=== PATIENT | female | born 1995 | race Caucasian/White ===

== ENCOUNTER 2016-03-14 11:04 | Outpatient (CLI) | payer SELFPAY ==
[~2016-03-14] VITALS: Ht 165.1 cm; Wt 111.7 kg
[2016-03-14 11:09] VITALS: BP 141/82
--- OUTSIDE RECORDS SUMMARY | 2016-03-14 11:10 | XMS REPORT ---
Author TARAH Broussard [facility] eClinicalWorks Address Unknown Phone Unavailable Care Team Providers Care Genetic Counselor Name Role Phone TARAH MENDOZA Unavailable Allergies No Known Allergies Problems Problem Type Condition Code Onset Dates Condition Status Problem Morbid obesity due to excess calories E66.01 Active Problem PCOS (polycystic ovarian syndrome) E28.2 Active Problem Dysuria R30.0 Active Assessment PCOS (polycystic ovarian syndrome) E28.2 Active Assessment Morbid obesity due to excess calories E66.01 Active Medications No Known Medications Procedures Procedure Coding System Code Date ASSAY OF INSULIN CPT-4 63662 September 08, 2015 COMPLETE CBC W/AUTO DIFF WBC CPT-4 82807 September 08, 2015 ASSAY THYROID STIM HORMONE CPT-4 42396 September 08, 2015 COMPREHEN METABOLIC PANEL CPT-4 89999 September 08, 2015 LIPID PANEL CPT-4 01536 September 08, 2015 VENIPUNCT, ROUTINE* CPT-4 88769 September 08, 2015 Results No Known Results Summary Purpose eClinicalWorks Submission
[2016-03-14] MEDS ORDERED: METF500T4 PO (11:16)
[2016-03-14 11:39] LABS: BASOPHILS # (AUTO) 0.1 10^3/uL (0.0-0.1); BASOPHILS % (AUTO) 1 % (0-10); EOSINOPHILS # (AUTO) 0.2 10^3/uL (0.0-0.3); EOSINOPHILS % (AUTO) 3 % (0-10); LYMPHOCYTES # (AUTO) 3.3 X 10^3 (1.0-4.0); LYMPHOCYTES % (AUTO) 35 % (12-44); MEAN CORPUSCULAR HEMOGLOBIN 29 PG (25-34); MEAN CORPUSCULAR HGB CONC 33 G/DL (32-36); MEAN CORPUSCULAR VOLUME 88 FL (80-99); MEAN PLATELET VOLUME 10.1 FL (7.4-10.4); MONOCYTES # (AUTO) 0.8 X 10^3 (0.0-1.0); MONOCYTES % (AUTO) 8 % (0-12); NEUTROPHILS % (AUTO) 53 % (42-75); PLATELET COUNT 260 10^3/uL (130-400); RED BLOOD COUNT 4.67 10^6/uL (4.35-5.85); RED CELL DISTRIBUTION WIDTH 13.5 % (10.0-14.5); WHITE BLOOD COUNT 9.4 10^3/uL (4.3-11.0)
[2016-03-15] MEDS ORDERED: IBUP-1773 PO (23:57)
[2016-03-15] MEDS ORDERED: HYDR-3812 PO (23:57)
== END 2016-03-14 11:35 | disposition home or self-care (01) ==
LOC: PREOP 11:04
PROVIDERS: ATTEND Obstetrics & Gynecology
DX: Z01.812 Encounter for preprocedural laboratory examination (principal); Z11.2 Encounter for screening for other bacterial diseases; N83.201 Unspecified ovarian cyst, right side
CPT/HCPCS: 36415; 84703; 85025; 87081

== ENCOUNTER 2016-03-15 07:42 | Day surgery (SDC) | payer SELFPAY ==
[~2016-03-15] VITALS: Ht 165.1 cm; Wt 111.7 kg
[2016-03-15 07:40] VITALS: BP 124/82
[~2016-03-15 07:42] MED LIST: METF500T4 PO
--- NOTE | 2016-03-15 07:59 | History & Physical-Surgical ---
HPO-Surgical History of Present Illness Chief Complaint: right ovarian dermoid/teratoma Diagnosis/Surgical Indication: right ovarian dermoid/teratoma Procedure: laparoscopic right ovarian cystectomy Date of Surgery: Mar 15, 2016 Weight (Pounds): 246 Weight (Ounces): 3.0 Height (Feet): 5 Height (Inches): 5.00 Allergies and Home Medications Allergies Coded Allergies: Iodinated Contrast Media - Oral and (Verified Allergy, Unknown, 03/14/16) Home Medications Metformin HCl 500 Mg Tablet 500 MG PO BID (Reported) Past Esxcwui-Lerixy-Dmqsjr Hx Patient Social History Marrital Status: single Number of Children: 0 Number of living children: 0 Employed/Student: employed Alcohol Use: Denies Use Recreational Drug Use: No Smoking Status: Never a Smoker Recent Hopitalizations: No Immunizations Up To Date Tetanus Booster (TDap): Unknown Seasonal Allergies Seasonal Allergies: No Surgeries HX Surgeries: Yes Surgeries: Gallbladder, Tonsillectomy Respiratory Hx Respiratory Disorders: Yes Cardiovascular Hx Cardiovascular Disorders: No Reproductive System : No Hx Reproductive Disorders: Yes (right dermoid cyst) Female Reproductive Disorders: Polycystic Ovarian Dis Genitourinary Hx Genitourinary Disorders: No Gastrointestinal Hx Gastrointestinal Disorders: Yes Gastrointestinal Disorders: Chronic Constipation Musculoskeletal Hx Musculoskeletal Disorders: Yes ("slipped disc in lower back) Musculoskeletal Disorders: Arthritis Endocrine Hx Endocrine Disorders: No (on metformin for weight loss) HEENT HX ENT Disorders: No (glasses) Cancer Hx Cancer: No Psychosocial Hx Psychiatric Problems: No Integumentary HX Skin/Integumentary Disorder: No Blood Transfusions Hx Blood Disorders: No Family Medical History Significant Family History: Other Conditions/Hx Exam Vital Signs Capillary Refill : General Appearance: Alert Respiratory: Clear to Auscultation Cardiovascular: Regular Rate, Normal S1, Normal S2, No Murmurs Assessment/Plan Assessment and Plan 1: Right dermoid cyst 2. possible PCOs 3. family history of ovarian cancer Plan: Laparoscopy with resection of right dermoid cyst and possible oophorectomy, OiP risks of bleeding, infection, injury to bowel, bladder and ureter Patient is NPO. prophylactic SCDs. MIYA BOSTON DO Mar 15, 2016 07:59
[2016-03-15] MEDS ORDERED: LIDOCAINE 1% 10 MG/ML 0.2 ML SYR (FOR IV START) ONE (08:13)
[2016-03-15] MEDS ORDERED: ROCURONIUM 50 MG/5 ML (ZEMURON) VIAL IV ONE (08:14)
[2016-03-15] MEDS ORDERED: proPOfol 200 MG/20 ML (DIPRIVAN) VIAL IV ONE (08:14)
[2016-03-15] MEDS ORDERED: fentaNYL INJECTION 100 MCG/2 ML AMP ONE ×2 (08:14→10:01)
[2016-03-15] MEDS ORDERED: LACTATED RINGERS 1,000 ML IV ONE ×2 (08:14→09:45)
[2016-03-15] MEDS ORDERED: MIDAZOLAM 2 MG/2 ML (VERSED) VIAL ONE (08:14)
[2016-03-15] MEDS ORDERED: LIDOCAINE PF 2% 10 ML (XYLOCAINE) AMP ONE (08:14)
[2016-03-15] MEDS ORDERED: SEVOFLURANE (ULTANE) 15 ML INHAL SOLN ONE ×4 (08:14→09:55)
[2016-03-15] MEDS ORDERED: metroNIDAZOLE 500 MG/100 ML IVPB (PRE-MIX) IV ONE (08:15)
[2016-03-15] MEDS ORDERED: CATHETER FLUSH 10 ML SYR IV PRN (08:15)
[2016-03-15] MEDS ORDERED: ceFAZolin 1 GM/NS 50 ML IVPB IV ONE ×2 (08:15)
[2016-03-15] MEDS: LACTATED RINGERS 1,000 ML IV PRN ×2 (08:42→09:51)
[2016-03-15] MEDS ORDERED: LACTATED RINGERS 1,000 ML IV PRN (08:44)
[2016-03-15] MEDS ORDERED: LIDOCAINE 1% 10 MG/ML 0.2 ML SYR (FOR IV START) INJ ONE (08:45)
[2016-03-15] MEDS ORDERED: BUPIVACAINE 0.25% 30 ML (SENSORCAINE) VIAL ONE (08:46)
[2016-03-15] MEDS ORDERED: NEOSTIGMINE (BLOXIVERZ ) 1 MG/1ML 10 ML VIAL ONE (10:20)
[2016-03-15] MEDS ORDERED: GLYCOPYRROLATE 0.2 MG/ML (ROBINUL) 2 ML VIAL ONE (10:20)
[2016-03-15] MEDS ORDERED: KETOROLAC 30 MG/ML VIAL ONE (10:44)
[2016-03-15] MEDS ORDERED: D5 LR IV SOLUTION 1,000 ML IV SCH (10:51)
--- NOTE | 2016-03-15 10:56 | Operative Report ---
Operative Report Date of Procedure/Surgery Mar 15, 2016 Post-Operative Diagnosis right ovarian dermoid cyst failed laparoscopy Procedure Performed Name of Procedure: laparoscopy and laparotomy with right oophorectomy Description of Procedure Adult Daycare Coordinator Janie Palafox APRN psychiatric assistant necessary to assist with retraction of important neurovascular structures Anesthesia Type: General Estimated blood loss (mL): minimal Specimen(s) collected right ovary Indications right dermoid cyst Procedure With informed consent the patient was taken to the operating room where general anesthetic was found to be adequate. She was prepped and draped in the usual sterile fashion in the dorsal lithotomy position. A speculum was placed in the vagina and the cervix was grasped with a tenaculum a uterine manipulator was inserted. This was a Everfi uterine manipulator. The bladder was drained of clear yellow urine. Attention was now turned to the abdomen to the umbilicus was injected with 0.25 percent Marcaine and then a 5 mm skin incision was made. The varies needle was inserted and intra-abdominal placement was unable to be confirmed. I then placed a left upper quadrant trocar and confirmed some periumbilical adhesions, so decision made to convert to laparotomy. Patient was repositioned and a Pfannenstiel incision was made with the scalpel and carried through to the underlying layer of fascia with the scalpel. The fascia was incised in the midline and this was extended laterally. The rectus muscles were in the midline and the peritoneum was entered bluntly and then extended. The medium Aftab was inserted for retraction. the uterus and left ovary and tube were found to be normal. I grasped the right tube with a [place] and elevated this out of the pelvis. At this point I elevated the tube then realized that there was no tubal pathology. I then grasped the ovary and I clamped transected and ligated the uterine ovarian ligament with a Chinmay clamp and then cut and suture ligated. I and then dissected along the mesovarium with the Bovie. And then I clamped the ovarian artery with the Chinmay clamp and then transected and suture ligated with 2-0 Vicryl. Thus removing the entire ovary on the right side. There was no bleeding noted. I then irrigated the pelvis and removed the instruments and the Aftab retractor. I then closed the fascial incision with 0 Vicryl. I then closed the subcutaneous fat layer with 0-Vicryl. And then closed the skin with 4-0 Monocryl and then Dermabond.Bandages were placed. The instruments were removed from the vagina. Laparotomy sponges, Raytec, needles, and instrument counts were correct 2. The patient was now awakened and taken to the recovery room in a stable condition. Allergies and Home Medications Allergies Coded Allergies: Iodinated Contrast Media - Oral and (Verified Allergy, Unknown, 03/14/16) Home Medications Hydrocodone/Acetaminophen 1 Each Tablet #30 2 TAB PO Q4H PRN PRN MODERATE PAIN Prescribed by: MIYA BOSTON on 03/15/162356 Ibuprofen 600 Mg Tablet #40 600 MG PO Q6HR Prescribed by: MIYA BOSTON on 03/15/16 2357 Metformin HCl 500 Mg Tablet 500 MG PO BID (Reported) MIYA BOSTON DO Mar 15, 2016 10:56
[2016-03-15] MEDS ORDERED: ONDANSETRON 4 MG/2 ML (SDV) Z0FRAN IVP PRN (11:00)
[2016-03-15] MEDS ORDERED: fentaNYL INJECTION 100 MCG/2 ML AMP IVP PRN (11:00)
[2016-03-15] MEDS: morphine INJ 10 MG/ML 1ML (SYR OR VIAL) IV PRN ×2 (11:11→11:19)
[2016-03-15] MEDS ORDERED: HYDROmorphone (DILAUDID) 2 MG/ML VIAL IV PRN (11:15)
[2016-03-15] MEDS ORDERED: PROMETHAZINE INJ 25 MG/ML (PHENERGAN) AMP IV PRN (11:15)
[2016-03-15] MEDS ORDERED: MEPERIDINE (DEMEROL) INJ 50 MG/ML IV PRN (11:15)
[2016-03-15] MEDS ORDERED: fentaNYL INJECTION 250 MCG/5 ML AMP IV PRN (11:15)
[2016-03-15] MEDS ORDERED: ONDANSETRON 4 MG/2 ML (SDV) Z0FRAN IV PRN (11:15)
[2016-03-15 12:15] VITALS: BP 121/73
[2016-03-15] MEDS: HYDROcodone/APAP 5 MG/325 MG (LORTAB) TAB PO PRN ×2 (15:45→20:41)
[2016-03-15 18:09] VITALS: BP 133/77
[2016-03-15] MEDS: KETOROLAC 30 MG/ML VIAL IVP SCH (18:10)
[2016-03-15] MEDS ORDERED: FLU TRIvalent (5 YOA+) 2016-17 (AFLURIA) 0.5 ML IM ONE (20:30)
[2016-03-15 22:30] VITALS: BP 99/54
[2016-03-15] MEDS ORDERED: HYDR-3812 PO (23:57)
[2016-03-15] MEDS ORDERED: IBUP-1773 PO (23:57)
--- NOTE | 2016-03-15 23:59 | Discharge Inst-Women's Service ---
Discharge Inst-Women's Serv Depart Medication/Instructions New, Converted or Re-Newed RX: RX on Chart Final Diagnosis right ovarian dermoid Failed laparoscopy converted to open right oophorectomy Consults/Follow Up Additional Follow Up: Yes (1-2 weeks with Lorelei) Activity Activity: Activity as Tolerated Driving Instructions: No Driving for 1 Week (off work 2 weeks) NO SMOKING: NO SMOKING Nothing Inside Vagina: No Douching, No [place], No Tampons Diet Discharge Diet: No Restrictions Symptoms to Report to : Bleeding Excessive, Fever Over 101 Degrees F, Vaginal Bleeding Increase, Cramps in Feet or Legs, Vaginal Discharge Foul For Any Problems or Questions: Contact Your Physician Skin/Wound Care Infection Signs and Symptoms: Increased Redness, Foul Odor of Wound, Increased Drainage, Skin Itchy or Has a Rash, Increased Swelling, Temperature Above 101 F Operative Area Clean and Dry: Keep Incision Clean/Dry Stitches/Pato/Dermabond: Dermabond Bathing Instructions: MIYA Mejia DO Mar 15, 2016 23:59
[2016-03-16] MEDS: IBUPROFEN 600 MG (MOTRIN) TAB PO SCH ×3 (00:21→06:42)
[2016-03-16 02:30] VITALS: BP 121/66
[2016-03-16] MEDS: HYDROcodone/APAP 5 MG/325 MG (LORTAB) TAB PO PRN ×2 (02:32→09:49)
[2016-03-16] MEDS: KETOROLAC 30 MG/ML VIAL IVP SCH (04:45)
[2016-03-16 06:40] VITALS: BP 139/56
[2016-03-16 07:40] VITALS: BP 129/67
[2016-03-16] MEDS ORDERED: FLU TRIvalent (5 YOA+) 2016-17 (AFLURIA) 0.5 ML IM ONE (08:54)
[2016-03-16] MEDS ORDERED: DOCUSATE SODIUM 100 MG (COLACE) CAP PO SCH (09:00)
--- NOTE | 2016-03-16 10:49 | Anesthesia-General Post-Op ---
General Patient Condition Mental Status/LOC: Same as Preop Cardiovascular: Satisfactory Nausea/Vomiting: Absent Respiratory: Satisfactory Pain: Controlled Complications: Absent Post Op Complications Complications None Follow Up Care/Instructions Patient Instructions None needed. Anesthesia/Patient Condition Patient Condition Patient is doing well, no complaints, stable vital signs, no apparent adverse anesthesia problems. No complications reported per nursing. D/C home per [facility] Criteria: Yes ANY ROSADO CRNA Mar 16, 2016 10:49
== END 2016-03-16 10:00 | disposition home or self-care (01) ==
LOC: SDC 07:42 → WS 12:17 → SDC 03-16 10:00
PROVIDERS: ATTEND Obstetrics & Gynecology
DX: D27.0 Benign neoplasm of right ovary (principal); Z53.31 Laparoscopic surgical procedure converted to open procedure; Z23 Encounter for immunization
CPT/HCPCS: 88307; 90471; 94664; 96361; 96375

== ENCOUNTER → 2016-09-09 | Outpatient (CLI) | payer MEDICAID ==
[~2016-09-09] MED LIST changes: +HYDR-3812 PO; +IBUP-1773 PO
--- NOTE | 2016-09-09 12:08 | Diagnostic Imaging Report ---
INDICATION: survey. TECHNIQUE: Multiple real-time grayscale images were obtained over the gravid uterus. COMPARISON: None FINDINGS: There is a single intrauterine . The heart rate is 135 beats per minute. The placenta is posterior. No placenta previa. The cervix is closed and is 4.8 cm in length. There is adequate amniotic fluid seen. There is visualization of the stomach. The urinary bladder, the umbilical arteries, appear unremarkable. The cord insertion, spine, four-chamber view, and intracranial structures are not well seen due to position. Kidneys appear unremarkable. Biometrical measurements are as follows: Biparietal 5.64 cm, age 23 weeks 2 days, at 91 percentile. Head circumference 20.61 cm, age 22 weeks 6 days. Abdominal circumference 17.68 cm, age 22 weeks 5 days. Femur length 3.55 cm, age 21 weeks 2 days. Sonographic estimate age: 22 weeks 4 days. This compares to a gestational age of 21 weeks and six days based on LU of 01/14/2017. Sonographic estimated date of delivery: 01-09-17. Estimated Weight: 476 gm (+/- 70 gm). LMP percentile: 57%. heart rate: 135 beats per minute. number: 1 of 1. IMPRESSION: Followup within 2 weeks is suggested to reevaluate cord insertion, spine, four-chamber view, and the intracranial structures not well seen on the current exam due to position. Dictated by: Dictated on workstation # [id number]
== END ==
LOC: RAD 10:08
PROVIDERS: ATTEND Obstetrics & Gynecology
DX: Z36 Encounter for antenatal screening of mother (principal); Z3A.22 22 weeks gestation of pregnancy
CPT/HCPCS: 76805

== ENCOUNTER → 2016-09-28 | Outpatient (CLI) | payer MEDICAID ==
--- NOTE | 2016-09-28 13:50 | Diagnostic Imaging Report ---
INDICATION: survey TECHNIQUE: Multiple real-time grayscale images were obtained over the gravid uterus. COMPARISON: This study was compared to the prior exam of 09/09/16. FINDINGS: The previous exam noted a single live fetus approximately 22 weeks 4 days gestation plus or -2 weeks. There were no abnormalities identified but the cord insertion, spine, four-chamber view and intracranial structures were not well seen. On this exam the fetus is in variable presentation. heart motion was noted at a rate of 126 bpm was recorded. The four-chamber heart view and the cord insertion were still not well visualized. The spine intracranial contents appear normal. The placenta is fundal and there is no previa. The amniotic fluid volume is within normal limits. The growth parameter were not obtained for this study. IMPRESSION: 1. There is a single live fetus approximately 24 weeks 4 days gestation plus or -2 weeks. EDC remains January 14, 2017. 2. The intracranial contents and the spine where visualized and appear to be within normal limits. However the four-chamber heart view and the cord insertion were still difficult to evaluate. A short-term (2-4 week) followup exam would be recommended for further study. 3. The growth parameters were not obtained for this study. Biometrical measurements are as follows: Biparietal cm, age weeks days. Head circumference cm, age weeks days. Abdominal circumference cm, age weeks days. Femur length cm, age weeks days. Sonographic estimate age: weeks days. Sonographic estimated date of delivery: . Estimated Weight: gm (+/- gm). LMP percentile: %. heart rate: beats per minute. number: of . IMPRESSION: Dictated by: Dictated on workstation # [id number]
== END ==
LOC: RAD 10:05
PROVIDERS: ATTEND Obstetrics & Gynecology
DX: Z36 Encounter for antenatal screening of mother (principal); Z3A.24 24 weeks gestation of pregnancy
CPT/HCPCS: 76816

== ENCOUNTER → 2016-11-09 | Outpatient (CLI) | payer MEDICAID ==
[~2016-11-09] MED LIST changes: +AMLO5TAB4 PO; +DOCU100C37 PO; +FERR-74 PO; +FURO-125 PO; +PREN-142 PO
--- NOTE | 2016-11-09 14:30 | Diagnostic Imaging Report ---
INDICATION: Followup four-chamber view and cord insertion. TECHNIQUE: Multiple real-time grayscale images were obtained over the gravid uterus. COMPARISON: 09/28/16 FINDINGS: heart rate is 161 beats per minute. LETHA is 10.3 cm. position is vertex. There is fundal placenta with no placenta previa. The four-chamber view appears unremarkable. The cord insertion is still not well seen. IMPRESSION: The cord insertion is still not well seen. Dictated by: Dictated on workstation # [id number]
== END ==
LOC: RAD 12:33
PROVIDERS: ATTEND Obstetrics & Gynecology
DX: Z36 Encounter for antenatal screening of mother (principal); Z3A.00 Weeks of gestation of pregnancy not specified
CPT/HCPCS: 76816

== ENCOUNTER → 2016-12-15 | Outpatient (CLI) | payer MEDICAID ==
[~2016-12-15] MED LIST changes: -AMLO5TAB4 PO; -DOCU100C37 PO; -FERR-74 PO; -FURO-125 PO; -PREN-142 PO
== END ==
LOC: LABNPT 12:25
PROVIDERS: ATTEND Obstetrics & Gynecology
DX: Z53.29 Procedure and treatment not carried out because of patient's decision for other reasons (principal)